=== PATIENT | female | born 1970 | race Caucasian/White ===

== ENCOUNTER 2016-09-06 18:23 | Emergency (ER) | payer OTHER ==
[~2016-09-06 18:23] MED LIST: ACIPHEX20 M1 PO; ACIPHEX20 MG; ADVIL200 MG PO; ALBUTEROL SULF8.5 GM IH; ALBUTEROL17 GM INH; ALLEGRA-D1 TAB.SR; AUGMENTIN 875-1 EAC2 PO; BACITRACIN30 GM TP; BISOPROLOL FUMAR5 MG PO; CYCLOBENZAPRINE10 M1 PO; DETROL LA2 MG; DICLOFENAC POTA50 M1 PO; FLONASE16 G2 NS; HYCOTUSS EXPEC480 ML PO; HYDROCODON-ACE1 EA16 PO; IBUPROFEN200 M1 PO; NORCO 5-325 TA1 EACH PO; NORCO 5/325 TAB1 TAB PO; PERCOCET 5/3251 TAB PO; PHENERGAN W/CO120 ML PO; PRILOSEC20 MG PO; PRILOSEC40 M1 PO; PRILOSEC40 MG; RELPAX20 MG PO; REQUIP1 MG; ROBINUL FORTE2 M1 PO; SINGULAIR10 M1 PO; SINGULAIR10 MG; SYNTHROID300 MCG; SYNTHROID50 MCG; TESSALON200 MG PO; TYLENOL325 M2 PO; TYLENOL325 MG PO; VITAMIN D2000 UNIT PO; VITAMIN D350000 UNI1 PO; WELLBUTRIN SR150 M2 PO; WELLBUTRIN SR150 MG; ZEBETA10 M1 PO; ZEBETA5 MG PO; ZITHROMAX TRI-500 MG PO; ZOFRAN ODT4 MG PO; ZOFRAN ODT4 MG/UDTAB PO; ZOFRAN4 M2 PO; ZOFRAN4 MG PO; [UNRECOGNIZED DRUG - OTHER]
== END 2016-09-06 20:07 | disposition left against medical advice (07) ==
LOC: EDMED 18:23
DX: Z53.21 Procedure and treatment not carried out due to patient leaving prior to being seen by health care provider (principal)